=== PATIENT | female | born 1955 | race Caucasian/White ===

== ENCOUNTER 2019-06-17 08:30 | Emergency (ER) | payer BC, SELFPAY ==
--- NOTE | ~2019-06-17 | CT_ITS ---
EXAMINATION: CT facial & cervical spine wo DATE: 06/17/2019 10:36 INDICATION: Neck and facial pain after fall TECHNIQUE: Computed tomography (CT) of the maxillofacial region and cervical spine was performed with out intravenous contrast. The dose-length product was 410.13 mGy-cm. Automated exposure control and iterative reconstruction technique were employed. COMPARISON: None FINDINGS: MAXILLOFACIAL CT: There is frontal scalp swelling. No acute maxillofacial fracture. Rightward nasal septal deviation. T emporal mandibular joints are symmetric. Orbits intact without evidence for blowout fracture. CERVICAL SPINE CT: There is disc narrowing at C3-4 and C6-7. Prominent bulky bridging osteophytes are present throughout the cervical spine anteriorly. No acute fracture or traumatic malalignment is identified. Odontoid p rocess is unremarkable. There is mild multilevel uncinate degenerative change. Lung apices are normal . There is a 1.5 cm hypodense mass right thyroid lobe. Recommend follow-up ultrasound on a nonemergen t basis. IMPRESSION: 1. No acute abnormality of the facial bones or cervical spine. Reviewed, dictated and finalized at location A. STRIAL TRACTOR DRIVER
--- NOTE | ~2019-06-17 | XR_ITS ---
XR hand RT min 3V 06/17/2019 10:45 Indication: Right hand pain after fall Procedure: 3 views right hand Comparison: No prior studies for comparison. Findings: There is a nondisplaced volar plate avulsion fracture ventral base fourth proximal phalanx. Mild polyarticular osteoarthritis. No significant soft tissue abnormality. No foreign bodies. Impression: 1: Nondisplaced fracture ventral base right fourth middle phalanx. Reviewed, dictated and finalized at location A. ALS COLLECTION TECHNICIAN Impression: 1: Nondisplaced fracture ventral base right fourth middle phalanx.
--- NOTE | ~2019-06-17 | XR_ITS ---
EXAMINATION: XR chest 2V 06/17/2019 10:45 INDICATION: Syncope. Status post fall. Chronic cough. PROCEDURE: 2 view chest COMPARISON: 03/03/2013 FINDINGS: The lungs are clear. The cardiomediastinal silhouette is within normal limits. There are no pleural effusions. There is no pneumothorax suspected. IMPRESSION: 1: NO ACUTE CARDIOPULMONARY DISEASE. Reviewed, dictated and finalized at location A. ON HANKING MACHINE OPERATOR
--- NOTE | ~2019-06-17 | CT_ITS ---
EXAMINATION: CT brain wo con DATE: 06/17/2019 10:35 INDICATION: Syncope. Head injury. TECHNIQUE: Computed tomography (CT) of the head was performed without intravenous contrast. The dose- length product was 681.00 mGy-cm. The mA was adjusted according to patient size. Iterative reconstruc tion technique was employed. COMPARISON: None FINDINGS: Brain parenchymal volume is normal. There are scattered mild periventricular and subcortica l white matter changes, most likely related to small vessel ischemic disease (microangiopathy). No ac [place] intracranial hemorrhage, infarction, mass or mass effect. No ventriculomegaly or midline shift. B asilar cisterns are patent. Normal kowalski-white differentiation. Paranasal sinuses and mastoids are pne umatized. No depressed skull fractures. There is frontal scalp swelling with subcutaneous gas. No und erlying skull fracture. IMPRESSION: 1. No acute intracranial abnormality. Reviewed, dictated and finalized at location A. ET INSTALLATION SPECIALIST
[2019-06-17 08:36] VITALS: BP 141/65; PULSE 80; RESP 18; TEMP 36.6; O2SAT 100
--- NOTE | 2019-06-17 08:41 | ECG_ITS ---
Measurements Intervals [place] Rate: 71 P: 47 WA: 153 QRS: -39 QRSD: 95 T: -11 QT: 421 QTc: 458 Interpretive Statements SINUS RHYTHM LEFT AXIS DEVIATION INCOMPLETE RIGHT BUNDLE BRANCH BLOCK VOLTAGE CRITERIA FOR LVH BORDERLINE T WAVE ABNORMALITY- INFERIOR LEADS BASELINE ARTIFACT- II, III, AVR, AVF BORDERLINE ECG Electronically Signed On 06-18-2019 8:11:03 CDT by Pastor Oro D.O.
[2019-06-17 08:42] VITALS: PULSE 80
[2019-06-17 08:54] VITALS: BP 125/61; BP 134/61; BP 135/67; PULSE 70; PULSE 72; PULSE 77
[2019-06-17 09:10] LABS: Basophils Absolute Auto 0.1 K/mm3 (0.0-0.1); Basophils Percent Auto 0.5 % (0.2-1.2); Eosinophils Absolute Auto 0.3 K/mm3 (0-0.3); Eosinophils Percent Auto 2.5 % (0-4.4); Hematocrit 36.2 % (37.0-47.0); Hemoglobin 11.2 g/dL (12.0-15.0); Immature Granulocyte Absolute 0.05 K/mm3 (0.00-0.031); Immature Granulocyte Percent A 0.5 % (0-0.5); Lymphocytes Absolute Auto 3.36 K/mm3 (0.9-3.2); Lymphocytes Percent Auto 31.3 % (18.3-44.2); Mean Corpuscular HGB Conc 30.9 g/dl (32-36); Mean Corpuscular Hemoglobin 26.6 pg (26-34); Monocytes Absolute Auto 0.9 K/mm3 (0.1-0.6); Monocytes Percent Auto 8.7 % (2.6-8.5); Neutrophils Absolute Auto 6.1 K/mm3 (1.3-6.7); Neutrophils Percent Auto 56.5 % (45.5-73.1); Platelet Count Result 327 k/mm3 (150-375); Red Blood Count 4.21 M/mm3 (4.2-5.4); Red Cell Distribution Width 15.2 % (11.5-14.5); White Blood Count 10.8 K/mm3 (4.5-10.0)
[2019-06-17 09:25] LABS: Blood Urea Nitrogen 15 mg/dL (7-17); Calcium 9.4 mg/dL (8.4-10.2); Carbon Dioxide 26 mmol/L (22-30); Chloride 104 mmol/L (98-107); Estimated CRCL calculation 79 ml/min; Estimated Glomerular Filt Rate > 60; Glucose 196 mg/dL (65-105); Potassium 4.3 mmol/L (3.4-5.0); Sodium 139 mmol/L (137-145)
[2019-06-17 09:44] VITALS: BP 129/64; PULSE 76; RESP 17; O2SAT 99
[2019-06-17 10:14] LABS: Troponin I < 0.012 ng/mL (0.000-0.034)
[2019-06-17 11:08] LABS: Add Urine Microscopic? YES; Appearance Urine Clear (Clear); Bacteria Urine Trace /hpf; Bilirubin Urine Negative (Negative); Blood Urine 3+ (Negative); Color Urine Yellow (Yellow); Glucose Urine UA Negative (Negative); Ketones Urine Negative (Negative); Leukocyte Esterase Ur Negative LEU/UL (Negative); Mucus Urine Rare /lpf; Nitrate Urine Negative (Negative); Protein Urine Negative (Negative); RBC Urine 21-50 /hpf (0-2); Specific Grav Ur 1.021 (1.001-1.035); Squamous Epithelial Cell Urine Many /hpf (Few); Urobilinogen Urine Negative mg/dL (<2.0); WBC Urine 0-3 /hpf
--- NOTE | 2019-06-17 11:34 | ED.SYNCOPE ---
HPI - Syncope General Chief Complaint: Syncope Stated Complaint: lightheaded, fall Time Seen by Provider: 06/17/19 09:07 Source: patient Mode of arrival: wheelchair Limitations: no limitations History of Present Illness HPI narrative: This is a 63 year old female that presents to the ER for a syncopal episode today. Reports she had just got up in the morning and was using the restroom. Reports she went to stand up and started to feel lightheaded and passed out. Reports falling forward and hitting her head on the shower base. Reports she quickly regained consciousness. Reports since she has had right 4th finger pain and neck pain. Also reports a laceration to her right 4th finger. Denies fever, vision changes, chest pain, shortness of breath, abdominal pain, vomiting, numbness, weakness, dysuria or hematuria. Related Data Home Medications Medication Instructions Recorded Confirmed aspirin 81 mg tablet,delayed 81 mg PO DAILY 03/31/19 release cetirizine 10 mg tablet 10 mg PO DAILY 03/31/19 Allergies Allergy/AdvReac Type Severity Reaction Status Date / Time Influenza Virus Vaccines Allergy Severe EXTREMELY Verified 06/17/19 08:39 ILL FOR 3 MONTHS smallpox vaccine,live Allergy Severe EXTREMELY Unverified 06/17/19 08:39 FOR ILL FOR 3 MONTHS tetanus immune globulin Allergy Severe EXTREMELY Unverified 06/17/19 08:39 ILL FOR 3 MONTHS Cephalosporins Allergy Intermediate RASH Unverified 06/17/19 08:39 bacitracin Allergy Unknown Rash Verified 06/17/19 08:39 cefaclor Allergy Unknown Skin Verified 06/17/19 08:39 Reaction clindamycin Allergy Unknown Swelling Verified 06/17/19 08:39 Penicillins Allergy Unknown hives Verified 06/17/19 08:39 Sulfa (Sulfonamide Allergy Unknown rash Verified 06/17/19 08:39 Antibiotics) Tetanus Vaccines and Toxoid Allergy Unknown Nausea Verified 06/17/19 08:39 Tetracyclines Allergy Unknown HIVES Verified 06/17/19 08:39 cephalexin Allergy Swelling Verified 06/17/19 08:43 Review of Systems Review of Systems: Narrative: CONSTITUTIONAL: Denies fever EYES: Denies visual changes ENT: Denies rhinorrhea, congestion, sore throat, or otalgia. CARDIOVASCULAR: Denies chest pain, palpitations RESPIRATORY: Denies cough or dyspnea. GASTROINTESTINAL: Denies abdominal pain, nausea, vomiting GENITOURINARY: Denies dysuria or hematuria. MUSCULOSKELETAL: Reports joint pain and myalgia. Denies back pain NEUROLOGIC: Denies headache, numbness, or weakness. All systems reviewed & are unremarkable except as noted in HPI and below PMFSH Past Medical History Medical History (Updated 06/17/19 @ 12:27 by Tamera Feliciano PA-C) History of breast cancer Pure hyperglyceridemia Type 2 diabetes mellitus with hyperglycemia Surgical History Surgical History (Updated 06/17/19 @ 11:43 by Tamera Feliciano PA-C) History of lumpectomy Social History Social History Smoking status: Never smoker Alcohol intake: never Gender identity (if verbalized by the patient): Female Exam Narrative: Exam Narrative: GENERAL: Well-appearing, obese, and in no acute distress. HEAD: Normocephalic. 1.5 cm linear laceration into subcutaneous tissue to the middle top of the forehead EYES: PERRLA and EOMI. ENT: Nares clear, no rhinorrhea or epistaxis. Mucous membranes moist. Oropharynx without tonsillar hypertrophy exudate or other lesions. Bilateral TMs pearly kowalski non-bulging NECK: Supple. No adenopathy or masses. Mild tenderness to palpation of midline cervical spine CHEST: Clear to auscultation. No respiratory distress. No wheezes rales or rhonchi. Nontender palpation of the chest wall HEART: Regular rate and rhythm. No murmur heard. Normal peripheral pulses. ABDOMEN: Soft, nontender, nondistended, normal active bowel sounds. BACK: No midline thoracic or lumbar spine tenderness EXTREMITIES: Normal range of motion. No obvious deformity. R
[2019-06-17] MEDS: MECLIZINE HCL 25 MG TABLET PO (11:51)
[2019-06-17 12:59] VITALS: BP 125/80; PULSE 80; RESP 20; TEMP 36.7; O2SAT 99
== END 2019-06-17 13:00 | disposition home or self-care (01) ==
PROVIDERS: Physician Assistant; Emergency Provider Emergency Medicine; PCP Family Medicine
DX: S01.81XA Laceration without foreign body of other part of head, initial encounter (principal); S62.654A Nondisplaced fracture of middle phalanx of right ring finger, initial encounter for closed fracture; R55 Syncope and collapse; Z85.3 Personal history of malignant neoplasm of breast; E11.65 Type 2 diabetes mellitus with hyperglycemia; E78.1 Pure hyperglyceridemia; Z79.82 Long term (current) use of aspirin; Z79.4 Long term (current) use of insulin; W01.198A Fall on same level from slipping, tripping and stumbling with subsequent striking against other object, initial encounter
CPT/HCPCS: 12011; 29130; 36415; 70450; 70486; 71046; 72125; 73130; 80048; 81001; 84484; 85025; 93005; 99284; A9270

== ENCOUNTER → 2019-06-27 12:46 | Outpatient (CLI) | payer BC, SELFPAY ==
--- NOTE | ~2019-06-27 | US_ITS ---
EXAMINATION: US thyroid EXAM DATE: 06/27/2019 13:04 INDICATION: Right nodule on CT. TECHNIQUE: Multiple grayscale and Doppler images of the thyroid were obtained (by a technologist who performed the scan) and subsequently reviewed. Individual nodules and recommendations may be reporte d in accordance with TI-RADS system as designated by the 2017 ACR White Paper TI-RADS committee. The re is no prior study for comparison. FINDINGS: The right thyroid lobe measures 4.8 x 2.1 x 1.6, the left measuring 4.7 x 1.6 x 1.8. These dimensions are mildly enlarged. There is a nodule in the right thyroid lobe superior pole measuring 2.1 x 2.0 x 1.4 centimeters, ruth d (2 points), hypoechoic (2 points), wider than tall, smooth margin, containing punctate echogenic fo cus (3 points), category TR5 for this nodule. IMPRESSION: 1. Right thyroid lobe nodule; recommend ultrasound-guided biopsy. Reviewed, dictated and finalized at location A.
== END ==
PROVIDERS: Visit Provider Family Medicine
DX: E04.1 Nontoxic single thyroid nodule (principal)
CPT/HCPCS: 76536

== ENCOUNTER → 2019-07-07 17:56 | Outpatient (CLI) | payer BC, SELFPAY ==
--- NOTE | ~2019-07-07 | XR_ITS ---
EXAMINATION: XR finger 4th RT min 2V DATE: 07/07/2019 18:15 INDICATION: Right hand fourth digit fracture. TECHNIQUE: 4 views of right hand fourth digit were obtained. COMPARISON: Right hand radiographs 06/17/2019 FINDINGS: There is a chip avulsion fracture of palmar base of fourth middle phalanx with 1 mm distrac tion. There is no visible callus. There is mild osteoarthritis of fourth metacarpophalangeal joint an d proximal and distal interphalangeal joints. IMPRESSION: 1. Unchanged avulsion fracture of palmar base of fourth middle phalanx. Reviewed, dictated and finalized at location A.
== END ==
PROVIDERS: PCP Family Medicine; Visit Provider Family Medicine
DX: S62.609D Fracture of unspecified phalanx of unspecified finger, subsequent encounter for fracture with routine healing (principal); X58.XXXD Exposure to other specified factors, subsequent encounter
CPT/HCPCS: 73140

== ENCOUNTER 2020-01-25 00:04 | Emergency (ER) | payer BC, SELFPAY ==
--- NOTE | ~2020-01-25 | CT_ITS ---
EXAMINATION: CT abdomen pelvis wo con DATE: 01/25/2020 01:21 INDICATION: Right flank pain. TECHNIQUE: Computed tomography (CT) of the abdomen and pelvis was performed without intravenous contr ast. Automated exposure control and iterative reconstruction technique were employed. The dose-length product was 1179.73 mGy-cm. COMPARISON: None. FINDINGS: The visualized portions of the lung bases demonstrate minimal atelectasis. No pleural effus ion. The heart size is normal. There are coronary artery calcifications. No pericardial effusion. The liver and spleen are normal. There are changes of cholecystectomy. The pancreas, adrenal glands, and left kidney are normal. There are least 4 stones in right kidney measuring up to 2.1 cm. There is mi ld right hydronephrosis and hydroureter. There is a 4 mm stone in distal right ureter. There are no d ilated loops of bowel. The appendix is normal. There are no pathologically enlarged lymph nodes. Ther e is no free intraperitoneal fluid. There are bridging endplate osteophytes at multiple levels in the spine, consistent with diffuse idiopathic skeletal hyperostosis (DISH). IMPRESSION: 1. 4 mm stone in distal right ureter with mild right hydronephrosis and hydroureter. 2. Nonobstructing right kidney stones. Reviewed, dictated and finalized at location A. IMPRESSION: 1. 4 mm stone in distal right ureter with mild right hydronephrosis and hydrour eter. 2. Nonobstructing right kidney stones.
--- NOTE | ~2020-01-25 | XR_ITS ---
EXAMINATION: XR abdomen/kub 1V DATE: 01/25/2020 01:27 INDICATION: Right flank pain. TECHNIQUE: A supine view of the abdomen on 2 radiographs was obtained. COMPARISON: CT abdomen and pelvis 01/25/2020 FINDINGS: There are no dilated loops of bowel. There is a 2.1 cm stone in right kidney. The distal ri ght ureteral stone is not visible. Surgical clips in the right upper quadrant are likely from cholecy stectomy. IMPRESSION: 1. Right kidney stone. Reviewed, dictated and finalized at location A. IMPRESSION: 1. Right kidney stone.
[2020-01-25 00:08] VITALS: BP 148/98; PULSE 80; RESP 16; TEMP 36.7; O2SAT 100
--- NOTE | 2020-01-25 00:30 | ED.ABDPAIN ---
HPI - Abdominal Pain General Chief Complaint: Urogenital-Female Stated Complaint: right flank pain Time Seen by Provider: 01/25/20 00:20 Source: patient Mode of arrival: ambulatory Limitations: no limitations History of Present Illness HPI narrative: This patient is a 64 year old female with history of diabetes mellitus who present for evaluation right lower abdominal pain. She states she developed pain 2 hours ago, and her pain is located in her right lower abdomen and right lower back. She feels the urge to urinate but she reports she is unable to go. She denies any urinary symptoms before her pain started. She reports her pain is so severe that she is having associated nausea and vomiting. She does not have a history of kidney stones. She denies fever or chills. Related Data Home Medications Medication Instructions Recorded Confirmed aspirin 81 mg tablet,delayed 81 mg PO DAILY 03/31/19 12/06/19 release cetirizine 10 mg tablet 10 mg PO DAILY 03/31/19 12/06/19 Allergies Allergy/AdvReac Type Severity Reaction Status Date / Time Influenza Virus Vaccines Allergy Severe EXTREMELY Verified 01/25/20 00:51 ILL FOR 3 MONTHS smallpox vaccine,live Allergy Severe EXTREMELY Verified 01/25/20 00:51 FOR ILL FOR 3 MONTHS tetanus immune globulin Allergy Severe EXTREMELY Verified 01/25/20 00:51 ILL FOR 3 MONTHS Cephalosporins Allergy Intermediate RASH Verified 01/25/20 00:51 bacitracin Allergy Unknown Rash Verified 01/25/20 00:51 cefaclor Allergy Unknown Skin Verified 01/25/20 00:51 Reaction clindamycin Allergy Unknown Swelling Verified 01/25/20 00:51 Penicillins Allergy Unknown hives Verified 01/25/20 00:51 Sulfa (Sulfonamide Allergy Unknown rash Verified 01/25/20 00:51 Antibiotics) Tetanus Vaccines and Toxoid Allergy Unknown Nausea Verified 01/25/20 00:51 Tetracyclines Allergy Unknown HIVES Verified 01/25/20 00:51 cephalexin Allergy Swelling Verified 01/25/20 00:51 metformin AdvReac Severe Diarrhea Verified 01/25/20 00:51 Review of Systems Review of Systems: All systems reviewed & are unremarkable except as noted in HPI and below Constitutional: Constitutional: Denies chills and Denies fever(s) Gastrointestinal: Gastrointestinal: Reports abdominal pain, Reports nausea and Reports vomiting Genitourinary: Genitourinary: Denies hematuria, Reports post void dribbling and Reports flank pain Musculoskeletal: Musculoskeletal: Reports back pain [facility] Past Medical History Medical History (Updated 01/25/20 @ 02:22 by Beverly Vasques MD) BPV (benign positional vertigo) History of breast cancer Obesity (BMI 30-39.9) Pure hyperglyceridemia Type 2 diabetes mellitus with hyperglycemia Surgical History Surgical History History of lumpectomy Family History Family History Grandparent Diabetes mellitus Family history of cardiovascular disease Family history of malignant neoplasm of bone Sibling Diabetes mellitus Hypertension Asthma Mother Patient's mother is , Onset Age: 90 Family history of malignant neoplasm of ovary Family history of elevated blood lipids Father Patient's father is , Onset Age: 86 Family history of cardiovascular disease Family history of chronic obstructive pulmonary disease Diabetes mellitus Hypertension Asthma Cerebrovascular accident Other Family history of headache disorder Social History Social History Smoking status: Never smoker Alcohol intake: never Gender identity (if verbalized by the patient): Female Exam Const: General: alert Nutritional Appearance: obese Orientation/consciousness: patient oriented x3 HENMT: Head: normocephalic and atraumatic Face and sinus: face symmetric Eyes: EOM: EOMs intact b
[2020-01-25 00:41] LABS: Basophils Absolute Auto 0.1 K/mm3 (0.0-0.1); Basophils Percent Auto 0.5 % (0.2-1.2); Eosinophils Absolute Auto 0.4 K/mm3 (0-0.3); Eosinophils Percent Auto 2.6 % (0-4.4); Hemoglobin 11.4 g/dL (12.0-15.0); Immature Granulocyte Absolute 0.11 K/mm3 (0.00-0.031); Immature Granulocyte Percent A 0.7 % (0-0.5); Lymphocytes Absolute Auto 4.49 K/mm3 (0.9-3.2); Mean Corpuscular HGB Conc 31.7 g/dl (32-36); Mean Corpuscular Hemoglobin 27.5 pg (26-34); Mean Corpuscular Volume 86.7 fl (80-100); Mean Platelet Volume 10.4 fl (7.4-10.4); Monocytes Absolute Auto 1.3 K/mm3 (0.1-0.6); Monocytes Percent Auto 7.9 % (2.6-8.5); Neutrophils Absolute Auto 10.2 K/mm3 (1.3-6.7); Neutrophils Percent Auto 61.3 % (45.5-73.1); Platelet Count Result 333 k/mm3 (150-375); Red Blood Count 4.15 M/mm3 (4.2-5.4); Red Cell Distribution Width 14.8 % (11.5-14.5); White Blood Count 16.6 K/mm3 (4.5-10.0)
[2020-01-25 00:46] LABS: Add Urine Microscopic? YES; Appearance Urine Cloudy (Clear); Bacteria Urine 2+ /hpf; Bilirubin Urine Negative (Negative); Blood Urine 2+ (Negative); Color Urine Yellow (Yellow); Glucose Urine UA Negative (Negative); Ketones Urine Negative (Negative); Leukocyte Esterase Ur Trace LEU/UL (Negative); Mucus Urine Rare /lpf; Nitrate Urine Negative (Negative); Protein Urine Negative (Negative); RBC Urine 21-50 /hpf (0-2); Specific Grav Ur 1.025 (1.001-1.035); Squamous Epithelial Cell Urine Many /hpf (Few); Urobilinogen Urine Negative mg/dL (<2.0); WBC Urine 16-20 /hpf
[2020-01-25] MEDS: SODIUM CHLORIDE 0.9% IV 1,000 ML 999 ML IV CONT (00:52)
[2020-01-25] MEDS: ONDANSETRON INJ 4 MG/2 ML VIAL IV PUSH (00:52)
[2020-01-25] MEDS: MORPHINE SULFATE (*CRX) 4 MG/ML INJ IV PUSH (00:52)
[2020-01-25 00:55] LABS: Alanine Aminotransferase 31 U/L (4-35); Albumin Level 4.5 g/dL (3.5-5.1); Alkaline Phosphatase 152 U/L (38-126); Anion Gap 12 mmol/L (8-16); Aspartate Amino Transferase 42 U/L (14-36); Bilirubin,Total 0.2 mg/dL (0.2-1.3); Blood Urea Nitrogen 16 mg/dL (7-17); Calcium 9.4 mg/dL (8.4-10.2); Carbon Dioxide 28 mmol/L (22-30); Chloride 97 mmol/L (98-107); Estimated Glomerular Filt Rate 50; Glucose 252 mg/dL (65-105); Lipase 235 U/L (23-300); Potassium 4.3 mmol/L (3.4-5.0); Sodium 137 mmol/L (137-145)
[2020-01-25] MEDS: TAMSULOSIN HCL 0.4 MG CAPSULE PO (01:49)
[2020-01-25] MEDS: NITROFURANTOIN MONOHYD MACROCR 100 MG CAP PO (01:49)
[2020-01-25 02:35] VITALS: BP 131/62; PULSE 67; RESP 16; TEMP 36.8; O2SAT 98
== END 2020-01-25 02:36 | disposition home or self-care (01) ==
PROVIDERS: Emergency Provider General Practice; PCP Family Medicine
DX: N13.2 Hydronephrosis with renal and ureteral calculous obstruction (principal); E11.9 Type 2 diabetes mellitus without complications; E78.1 Pure hyperglyceridemia; Z85.3 Personal history of malignant neoplasm of breast; E66.9 Obesity, unspecified; Z79.82 Long term (current) use of aspirin
CPT/HCPCS: 36415; 74018; 74176; 80053; 81001; 83690; 85025; 87086; 87088; 96361; 96374; 96375; 99284; A9270; J2270; J2405; J7030

== ENCOUNTER 2020-03-07 06:51 | Emergency (ER) | payer BC, SELFPAY ==
[2020-03-07 06:59] VITALS: BP 139/65; PULSE 78; RESP 20; TEMP 36.6; O2SAT 98
[2020-03-07 08:08] LABS: Anion Gap 7 mmol/L (8-16); Blood Urea Nitrogen 19 mg/dL (7-17); Calcium 9.3 mg/dL (8.4-10.2); Carbon Dioxide 29 mmol/L (22-30); Chloride 103 mmol/L (98-107); Estimated CRCL calculation 70 ml/min; Estimated Glomerular Filt Rate > 60; Glucose 231 mg/dL (65-105); Potassium 4.5 mmol/L (3.4-5.0); Sodium 139 mmol/L (137-145)
[2020-03-07 08:32] LABS: D Dimer 2.83 ug/mL (<0.48)
--- NOTE | 2020-03-07 08:40 | ED.GENADULT ---
HPI - General Adult General Chief complaint: Extremity Problem,Nontraumatic Stated complaint: right foot swelling/hives; muscle cramps Time Seen by Provider: 03/07/20 07:10 History of Present Illness HPI narrative: Patient is a 64-year-old female who presents ER with right lower extremity swelling and pain. Reports over the last week she has been having cramping in her mid thigh with walking that is radiating down her leg. She is start developing pitting edema to right lower extremity over the last couple days. She does have history of peripheral neuropathy but this seems different. When elevating her leg to get rid of the edema she feels some throbbing discomfort. No chest pain or chest pressure or shortness of breath. She is nausea/vomiting/dizziness. No previous DVT. No recent injury or immobilization. Reports that her was diagnosed with COVID-19 on 03/01/2020 however she has not been near him since 02/25 due to her daughter testing positive and being near him and them isolating from each other. She has no loss of taste or smell. No fevers or chills or sweats or productive cough. Related Data Home Medications Medication Instructions Recorded Confirmed aspirin 81 mg tablet,delayed 81 mg PO DAILY 03/31/19 01/31/20 release cetirizine 10 mg tablet 10 mg PO DAILY 03/31/19 01/31/20 Allergies Allergy/AdvReac Type Severity Reaction Status Date / Time Influenza Virus Vaccines Allergy Severe EXTREMELY Verified 01/25/20 00:51 ILL FOR 3 MONTHS smallpox vaccine,live Allergy Severe EXTREMELY Verified 01/25/20 00:51 FOR ILL FOR 3 MONTHS tetanus immune globulin Allergy Severe EXTREMELY Verified 01/25/20 00:51 ILL FOR 3 MONTHS Cephalosporins Allergy Intermediate RASH Verified 01/25/20 00:51 bacitracin Allergy Unknown Rash Verified 01/25/20 00:51 cefaclor Allergy Unknown Skin Verified 01/25/20 00:51 Reaction clindamycin Allergy Unknown Swelling Verified 01/25/20 00:51 Penicillins Allergy Unknown hives Verified 01/25/20 00:51 Sulfa (Sulfonamide Allergy Unknown rash Verified 01/25/20 00:51 Antibiotics) Tetanus Vaccines and Toxoid Allergy Unknown Nausea Verified 01/25/20 00:51 Tetracyclines Allergy Unknown HIVES Verified 01/25/20 00:51 cephalexin Allergy Swelling Verified 01/25/20 00:51 metformin AdvReac Severe Diarrhea Verified 01/25/20 00:51 Review of Systems Review of Systems: All systems reviewed & are unremarkable except as noted in HPI and below Constitutional: Constitutional: Denies chills, Denies fever(s) and Denies weakness ENT: Denies nasal congestion and Denies sore throat Cardiovascular: Cardiovascular: Denies chest pain and Denies radiating jaw, neck or arm pain Respiratory: Respiratory: Denies cough, Denies dyspnea and Denies wheezing Musculoskeletal: Comments: Right lower extremity pain and swelling. [facility] Past Medical History Medical History (Updated 03/07/20 @ 10:51 by Yony Patel MD) BPV (benign positional vertigo) History of breast cancer Kidney stone Obesity (BMI 30-39.9) Pure hyperglyceridemia Type 2 diabetes mellitus with hyperglycemia Uric acid renal calculus Surgical History Surgical History History of lumpectomy Family History Family History Grandparent Diabetes mellitus Family history of cardiovascular disease Family history of malignant neoplasm of bone Sibling Diabetes mellitus Hypertension Asthma Mother Patient's mother is , Onset Age: 90 Family history of malignant neoplasm of ovary Family history of elevated blood lipids Father Patient's father is , Onset Age: 86 Family history of cardiovascular disease Family history of chronic obstructive pulmonary disease Diabetes mellitus Hypertension Asthma Cerebrovascular accident Other Family history of headache disorder
[2020-03-07 09:01] VITALS: BP 124/78; PULSE 72; RESP 16; O2SAT 100
[2020-03-07] MEDS: ENOXAPARIN 100 MG/ML SYRINGE 98 MG SUB-Q (09:09)
--- NOTE | 2020-03-07 11:07 | PC.NURSE ---
script called in to [place] at this time at pt's request.
[2020-03-07 11:13] VITALS: BP 116/59; PULSE 72; RESP 15; O2SAT 99
== END 2020-03-07 11:14 | disposition home or self-care (01) ==
PROVIDERS: Emergency Provider Emergency Medicine; PCP Family Medicine
DX: R60.0 Localized edema (principal); M79.604 Pain in right leg; E11.9 Type 2 diabetes mellitus without complications; Z79.82 Long term (current) use of aspirin; Z85.3 Personal history of malignant neoplasm of breast; Z87.442 Personal history of urinary calculi
CPT/HCPCS: 36415; 80048; 85380; 96372; 99283; J1650

== ENCOUNTER 2020-03-08 07:30 | Outpatient (CLI) | payer BC, SELFPAY ==
--- NOTE | ~2020-03-08 | US_ITS ---
US venous doppler LE RT DATE: 03/08/2020 07:53 INDICATION: Edema of right lower extremity TECHNIQUE: Real-time and color flow imaging and Doppler analysis of the veins of the right lower extr emity COMPARISON: None FINDINGS: There is spontaneous and phasic flow and normal augmentation and color flow signal and norm al compression of the deep veins of the right lower extremity. IMPRESSION: No evidence of deep venous thrombosis of right lower extremity Reviewed, dictated and finalized at Location A. Reviewed, dictated and finalized at location A. [facility]
== END 2020-03-08 07:31 | disposition home or self-care (01) ==
LOC: ANHIMG 07:34
PROVIDERS: PCP Family Medicine; Visit Provider Family Medicine
DX: R60.0 Localized edema (principal)
CPT/HCPCS: 93971

== ENCOUNTER → 2020-10-24 12:16 | Outpatient (CLI) | payer BC, SELFPAY ==
--- NOTE | ~2020-10-24 | MM_ITS ---
EXAMINATION: MM diagnostic klaus BI w anthnoy HISTORY: History of left breast cancer TECHNIQUE: Craniocaudal, mediolateral, and mediolateral oblique 3-D tomosynthesis images of the breas ts were performed and synthetic 2-D images were generated. CAD analysis was submitted and interpreted . COMPARISON: 04/18/2019, 01/19/2018, 11/09/2016 BREAST PARENCHYMAL COMPOSITION: There are scattered areas of fibroglandular density. FINDINGS: Stable lumpectomy changes are noted in the upper outer quadrant of the left breast. There i s no evidence of suspicious mass, calcification, or architectural distortion in either breast maligna ncy. There has been no suspicious interval change. IMPRESSION: 1. No mammographic evidence of malignancy. 2. Recommend routine screening mammography in one year. BI-RADS Category 2: Benign finding(s). Reviewed, dictated and finalized at location A.
== END ==
PROVIDERS: PCP Family Medicine; Visit Provider Family Medicine
DX: Z85.3 Personal history of malignant neoplasm of breast (principal)
CPT/HCPCS: 77062; 77066; G0279

== ENCOUNTER → 2022-01-20 08:26 | Outpatient (CLI) | payer MEDICARE, BC, SELFPAY ==
--- NOTE | ~2022-01-20 | MMUS_ITS ---
EXAMINATION: MM diagnostic klaus BI w anthony, US breast RT complete HISTORY: History of left breast cancer. TECHNIQUE: Additional 3-D tomosynthesis images of the breasts were performed and synthetic 2-D images were generated. CAD analysis was submitted and interpreted. High resolution complete right breast ul trasound was performed. COMPARISON: Comparison to multiple prior studies sequentially, with oldest reviewed study dated 07/05. BREAST PARENCHYMAL COMPOSITION: Breast composed of scattered areas of fibroglandular density FINDINGS: MAMMOGRAPHIC FINDINGS: There is stable architectural distortion in the upper outer quadrant of the left breast, consistent w ith previous lumpectomy. There are no suspicious masses, calcifications or architectural distortion i n either breast to suggest malignancy. ULTRASOUND: Complete right breast ultrasound including all 4 quadrants in the subareolar location: Normal heterog eneous echotexture without focal solid or cystic mass. IMPRESSION: 1. No evidence for malignancy in either breast. 2. Routine yearly screening mammogram and regular clinical breast examination are recommended. BI-RADS Category 1: Negative Reviewed, dictated and finalized at location A. IMPRESSION: 1. No evidence for malignancy in either breast. 2. Routine yearly screening mammogram and regular clinical breast examination a re recommended. BI-RADS Category 1: Negative
== END ==
PROVIDERS: PCP Family Medicine; Visit Provider Family Medicine
DX: Z85.3 Personal history of malignant neoplasm of breast (principal)
CPT/HCPCS: 76641; 77062; 77066; G0279

== ENCOUNTER → 2023-01-07 09:04 | Outpatient (CLI) | payer MEDICARE, BC, SELFPAY ==
--- NOTE | ~2023-01-07 | CT_ITS ---
Non-contrast CT scan of the Abdomen and Pelvis Clinical indication: Ureteral stone Technique: 2.5 mm axial scans were obtained through the abdomen and pelvis without intravenous or or al contrast. Dose reduction technique was used on this scan by utilizing automated exposure control a nd iterative reconstruction technique. The dose-length product (DLP) was 833.78 mGy-cm. COMPARISON: 01/25/2020 Findings: Images through the lung bases reveal no abnormalities. There is a 9 mm stone in the right renal pelvis/right proximal right ureter. There is mild to moderat e right hydronephrosis. There is a large right midpole stone measuring 2 cm in diameter. There is an additional large irregular right midpole stone measuring approximately 1.5 cm in diameter. No left re nal or left ureteral stone. No left hydronephrosis. The liver, spleen, pancreas, and adrenals appear normal. Cholecystectomy clips are present. There is no aortic aneurysm. There is no evidence of bowel obstruction. Images through the pelvis were performed. There is no evidence of ascites or lymphadenopathy. Urinary bladder unremarkable. Patient is post hysterectomy. No pelvic mass seen. No ascites. Impression: 9 mm stone at the very proximal right ureter/right renal pelvis, with mild to moderate right hydronep hrosis. Additional large nonobstructing right renal stones, as detailed above. Reviewed, dictated and finalized at location M. Impression: 9 mm stone at the very proximal right ureter/right renal pelvis, with mild to m oderate right hydronephrosis. Additional large nonobstructing right renal stones, as detailed above.
== END ==
PROVIDERS: PCP Family Medicine; Visit Provider Family Medicine
DX: N20.2 Calculus of kidney with calculus of ureter (principal)
CPT/HCPCS: 74176

== ENCOUNTER → 2023-03-03 13:08 | Outpatient (CLI) | payer MEDICARE, BC, SELFPAY ==
--- NOTE | ~2023-03-03 | XR_ITS ---
EXAMINATION: XR chest 2V DATE: 03/03/2023 13:32 INDICATION: Cough and shortness of breath TECHNIQUE: PA and lateral views of the chest are obtained. COMPARISON: 06/17/2019 FINDINGS: The lungs are free of acute opacities. No pleural effusion or pneumothorax. The cardiomedia stinal silhouette is normal. There are bridging osteophytes at multiple levels in the spine, consiste nt with diffuse idiopathic skeletal hyperostosis (DISH). There are changes of partial left mastectomy and left axillary lymph node dissection. Cholecystectomy clips are noted. IMPRESSION: 1. No acute cardiopulmonary abnormality. Reviewed, dictated and finalized at location F. [facility]
== END ==
PROVIDERS: PCP Family Medicine; Visit Provider Family Medicine
DX: R06.02 Shortness of breath (principal); R05.9 Cough, unspecified
CPT/HCPCS: 71046

== ENCOUNTER 2023-10-05 11:03 | Outpatient (CLI) | payer MEDICARE, BC, SELFPAY ==
--- NOTE | ~2023-10-05 | MM_ITS ---
EXAMINATION: MM screening klaus BI w anthony HISTORY: Screening mammogram TECHNIQUE: Craniocaudal and mediolateral oblique 3-D tomosynthesis images were obtained and synthetic 2-D images were generated. CAD analysis was submitted and interpreted. COMPARISON: 01/20/2022, 10/24/2020, 04/18/2019 BREAST PARENCHYMAL COMPOSITION:Not Dense. There are scattered areas of fibroglandular density. FINDINGS: There is stable postoperative distortion of fat necrosis in the upper, outer left breast. N o suspicious mass, calcification, or new architectural distortion are identified in either breast to suggest malignancy. There has been no suspicious interval change. IMPRESSION: No mammographic evidence of malignancy. Recommend routine screening mammography in one year. BI-RADS Category 2: Benign finding(s). Reviewed, dictated and finalized at [facility].
== END 2023-10-05 11:04 ==
LOC: MICIMG 11:06
PROVIDERS: PCP Family Medicine; Visit Provider Family Medicine
DX: Z12.31 Encounter for screening mammogram for malignant neoplasm of breast (principal)
CPT/HCPCS: 77063; 77067

== ENCOUNTER 2025-01-31 08:31 | Outpatient (CLI) | payer MEDICARE, BC, SELFPAY ==
--- NOTE | ~2025-01-31 | MMUS_ITS ---
EXAMINATION: MM diagnostic klaus BI w anthony, US breast LT limited INDICATION: 69-year old female with prior history of left lumpectomy for breast cancer who presents for annual follow-up diagnostic mammogram. COMPARISON: 10/05/2023 through 08/08/2015 TECHNIQUE: Digital breast tomosynthesis ML, CC and MLO of both breasts and spot compression CC and MLO views of Left breast were obtained with computer-aided detection to assist in interpretation of the study. FINDINGS: There are scattered areas of fibroglandular density. Posttreatment changes are again identified within the superior lateral at posterior depth within the left breast which appears slightly nodular on this examination. A spiculated mass containing few calcifications persists in the lower outer left breast. No other masses, architectural distortion or john picious calcifications in the rest of the breast. LEFT BREAST ULTRASOUND FINDINGS: Targeted evaluation of the lower outer left breast revealed a 0.9 x 0.8 x 1.04 cm irregular shaped hypoechoic mass with internal vascularity and contains echogenic foci that represent calcifications 4:00, subareolar location, which correlates to the mammographic finding.The tumor mass comes within 2 mm of the overlying skin which is thickened. Postsurgical changes are seen within the lumpectomy bed. No suspicious solid or cystic mass. IMPRESSION: Highly suspicious LEFT breast mass at 4:00 location that correlates to mammography finding. This finding is suspicious for tumor recurrence. Biopsy is recommended. RECOMMENDATIONS: Ultrasound-guided core needle biopsy of LEFT breast mass at 4:00 location. BI-RADS 5, HIGHLY SUSPICIOUS FOR MALIGNANCY Reviewed, dictated and finalized at location B. IMPRESSION: Highly suspicious LEFT breast mass at 4:00 location that correlates to mammogra phy finding. This finding is suspicious for tumor recurrence. Biopsy is recomme nded. RECOMMENDATIONS: Ultrasound-guided core needle biopsy of LEFT breast mass at 4:00 location. BI-RADS 5, HIGHLY SUSPICIOUS FOR MALIGNANCY
== END 2025-01-31 08:32 | disposition home or self-care (01) ==
LOC: MICIMG 08:33
PROVIDERS: PCP Family Medicine; Visit Provider Family Medicine
DX: Z85.3 Personal history of malignant neoplasm of breast (principal); Z12.31 Encounter for screening mammogram for malignant neoplasm of breast; R92.8 Other abnormal and inconclusive findings on diagnostic imaging of breast
CPT/HCPCS: 76642; 77062; 77066; G0279